=== PATIENT | female | born 1960 | race Caucasian/White ===

== ENCOUNTER 2023-10-22 05:53 | Emergency (ER) | payer MEDICAID ==
[~2023-10-22] VITALS: Ht 149.9 cm; Wt 57.7 kg
[2023-10-22] MEDS ORDERED: FENO145T25 PO (06:56)
[2023-10-22] MEDS ORDERED: FOLI1TAB27 PO (06:56)
[2023-10-22] MEDS ORDERED: ACET-2778 PO (06:56)
[2023-10-22] MEDS ORDERED: LISI40TA13 PO (06:56)
[2023-10-22] MEDS ORDERED: SIMV-45 PO (06:56)
[2023-10-22] MEDS: triamcinolone acetonide 40mg/ml inj IM ONE (07:55)
[2023-10-22 08:12] LABS: BILIRUBIN,URINE NEGATIVE (Neg); CLARITY,URINE CLOUDY (Clear); COLOR,URINE STRAW (Yellow); GLUCOSE, URINE NEGATIVE (Neg); KETONES,URINE NEGATIVE (Neg); LEUKOCYTE ESTERASE ,URINE LARGE (Neg); NITRITES, URINE NEGATIVE (Neg); OCCULT BLOOD,URINE TRACE-INTACT (Neg); PH,URINE 6.5 (4.8-8.0); PROTEIN,URINE NEGATIVE (Neg); UROBILINOGEN,URINE 0.2 E.U/dL (0.2-1.0)
[2023-10-22 08:14] LABS: BASOPHILS % (AUTO) 1.1 % (0-1); EOSINOPHILS # (AUTO) 0.1 X10'3 (0-0.9); EOSINOPHILS % (AUTO) 2.2 % (0-6); HEMATOCRIT 37.5 % (35.0-45.0); HEMOGLOBIN 12.6 g/dl (12.0-16.0); LYMPHOCYTES # (AUTO) 0.8 X10'3 (1.1-4.8); LYMPHOCYTES % (AUTO) 25.6 % (21-51); MEAN CORPUSCULAR HEMOGLOBIN 34.1 PG (27.0-31.0); MEAN CORPUSCULAR HGB CONC 33.5 g/dL (33.0-36.5); MEAN CORPUSCULAR VOLUME 101.9 FL (78-98); MEAN PLATELET VOLUME 7.2 FL (7.4-10.4); MONOCYTES # (AUTO) 0.3 X10'3 (0-0.9); MONOCYTES % (AUTO) 10.5 % (2-12); NEUTROPHILS # (AUTO) 1.9 X10'3 (1.8-7.7); NEUTROPHILS % (AUTO) 60.6 % (42-75); PLATELET COUNT 119 X10'3 (140-440); RED BLOOD COUNT 3.68 X10'6 (4.20-5.60); RED CELL DISTRIBUTION WIDTH 13.8 % (11.5-14.5); WHITE BLOOD COUNT 3.1 X10'3 (4.5-11.0)
[2023-10-22 08:25] LABS: ALANINE AMINOTRANSFERASE 30 U/L (12-78); ALBUMIN 3.5 G/DL (3.4-5.0); ALBUMIN/GLOBULIN RATIO 0.7 (1.1-1.5); ALKALINE PHOSPHATASE 80 IU/L (46-116); ANION GAP 12 (8-16); ASPARTATE AMINO TRANSFERASE 85 U/L (10-37); BILIRUBIN,TOTAL 0.9 MG/DL (0.1-1.0); BLOOD UREA NITROGEN 4 MG/DL (7-18); BUN/CREATININE RATIO 4.8 (10.0-20.0); CHLORIDE 98 MMOL/L (99-107); CREATININE 0.83 MG/DL (0.40-0.90); POTASSIUM 3.7 MMOL/L (3.5-5.1); SODIUM 132 MMOL/L (135-145); TOTAL PROTEIN 8.3 G/DL (6.4-8.2); eCRCL 48 ML/MIN; eGFR 70 ML/MIN
[2023-10-22 08:26] LABS: GLUCOSE 103 MG/DL (70-104)
[2023-10-22 08:33] LABS: UA COLLECTION TYPE NON-SPECIFIED
[2023-10-22 08:34] LABS: BACTERIA,URINE 4+ /HPF (Neg); SQUAMOUS EPITHELIAL CELL,UR MANY /LPF (FEW); WBC,URINE TNTC /HPF (0-4)
[2023-10-22] MEDS ORDERED: PRED20TA PO (11:41)
[2023-10-22 11:45] VITALS: BP 124/70; PULSE 99; RESP 18; TEMP 98; O2SAT 95
== END 2023-10-22 11:33 | disposition home or self-care (01) ==
LOC: ER 05:54
DX: R21 Rash and other nonspecific skin eruption (principal); Z79.1 Long term (current) use of non-steroidal anti-inflammatories (NSAID); Z79.899 Other long term (current) drug therapy
CPT/HCPCS: 36415; 80053; 81001; 85025; 85651; 96372; 99284; J3301

== ENCOUNTER 2023-11-19 00:37 | Inpatient (IN) | payer MEDICAID ==
[2023-11-19] VITALS (15 sets, daily range): BP systolic 104–169; BP diastolic 55–79; PULSE 89–100; RESP 15–21; O2SAT 93–99
[~2023-11-19] VITALS: Ht 149.9 cm; Wt 57.4 kg
[~2023-11-19 00:37] MED LIST: ACET-2778 PO; FENO145T25 PO; FOLI1TAB27 PO; LISI40TA13 PO; PRED20TA PO; SIMV-45 PO
[2023-11-19 01:28] LABS: BASOPHILS % (AUTO) 0.4 % (0-1); EOSINOPHILS % (AUTO) 0 % (0-6); HEMATOCRIT 32.6 % (35.0-45.0); HEMOGLOBIN 11.5 g/dl (12.0-16.0); LYMPHOCYTES # (AUTO) 0.4 X10'3 (1.1-4.8); LYMPHOCYTES % (AUTO) 4.9 % (21-51); MEAN CORPUSCULAR HEMOGLOBIN 34.2 PG (27.0-31.0); MEAN CORPUSCULAR HGB CONC 35.4 g/dL (33.0-36.5); MEAN CORPUSCULAR VOLUME 96.7 FL (78-98); MEAN PLATELET VOLUME 7.5 FL (7.4-10.4); MONOCYTES # (AUTO) 0.9 X10'3 (0-0.9); MONOCYTES % (AUTO) 10.3 % (2-12); NEUTROPHILS # (AUTO) 7.3 X10'3 (1.8-7.7); NEUTROPHILS % (AUTO) 84.4 % (42-75); PLATELET COUNT 145 X10'3 (140-440); RED BLOOD COUNT 3.37 X10'6 (4.20-5.60); RED CELL DISTRIBUTION WIDTH 12.9 % (11.5-14.5); WHITE BLOOD COUNT 8.6 X10'3 (4.5-11.0)
[2023-11-19 01:37] LABS: ALBUMIN 3.5 G/DL (3.4-5.0); ANION GAP 12 (8-16); BLOOD UREA NITROGEN 11 MG/DL (7-18); BUN/CREATININE RATIO 9.6 (10.0-20.0); CALCIUM 8.9 MG/DL (8.5-10.1); CHLORIDE 71 MMOL/L (99-107); CREATININE 1.14 MG/DL (0.40-0.90); GLUCOSE 135 MG/DL (70-104); PRO BRAIN NATRIURETIC PEPTIDE 508 PG/ML (0-125); TOTAL CARBON DIOXIDE 26.3 MMOL/L (24-32); eCRCL 35 ML/MIN; eGFR 48 ML/MIN
[2023-11-19 01:42] LABS: SODIUM 109 MMOL/L (135-145)
[2023-11-19 01:45] LABS: ETHANOL 39 MG/DL (<10)
[2023-11-19] MEDS: potassium Cl 20 mEq SR tablet PO ONE (02:40)
[2023-11-19] MEDS: thiamine 100mg tablet PO ONE (02:40)
[2023-11-19] MEDS: folic acid 1mg tablet PO ONE (02:40)
[2023-11-19] MEDS: magnesium sulf-water 2g/50mL 50 ML IV ONE ×2 (02:41→07:48)
[2023-11-19] MEDS: LORazepam 2 mg/ml vial IV ONE (03:53)
[2023-11-19] MEDS: ondansetron/PF 4mg/2ml inj IV ONE (04:21)
[2023-11-19] MEDS: sodium chloride 1gm tablet PO SCH (07:49)
[2023-11-19] MEDS: Potassium Cl inj 40 MEQ in normal saline 250ml IV soln 250 ML IV ONE (08:08)
[2023-11-19] MEDS: Potassium Cl 40 MEQ in sodium chloride 0.45% 500 ML IV ONE (08:26)
[2023-11-19] MEDS ORDERED: potassium Cl 20 mEq SR tablet PO PRN ×2 (10:40)
[2023-11-19] MEDS ORDERED: magnesium sulf-water 4G/100mL 100 ML IV PRN (10:40)
[2023-11-19] MEDS ORDERED: magnesium sulf-water 2g/50mL 50 ML IV PRN (10:40)
[2023-11-19] MEDS ORDERED: potassium Cl 40MEQ/1/2NS 520ml 520 ML IV PRN (10:40)
[2023-11-19] MEDS ORDERED: LORazepam 2 mg/ml vial IV PRN (10:45)
[2023-11-19 10:50] LABS: LIPASE 76 U/L (16-77); THYROID STIMULATING HORMONE 0.73 ulU/ml (0.34-4.50)
[2023-11-19 10:56] LABS: INR 1.2 INR; PROTHROMBIN TIME 12.6 SECONDS (9.0-12.0)
[2023-11-19 11:28] LABS: OSMOLALITY 232 MOSM/K (280-300)
[2023-11-19 11:29] LABS: ALANINE AMINOTRANSFERASE 64 U/L (12-78); ALBUMIN 3.3 G/DL (3.4-5.0); ALBUMIN/GLOBULIN RATIO 0.8 (1.1-1.5); ALKALINE PHOSPHATASE 60 IU/L (46-116); ANION GAP 11 (8-16); ASPARTATE AMINO TRANSFERASE 134 U/L (10-37); BILIRUBIN,TOTAL 2.7 MG/DL (0.1-1.0); BLOOD UREA NITROGEN 10 MG/DL (7-18); BUN/CREATININE RATIO 9.2 (10.0-20.0); CALCIUM 8.8 MG/DL (8.5-10.1); CHLORIDE 71 MMOL/L (99-107); CREATININE 1.09 MG/DL (0.40-0.90); GLUCOSE 132 MG/DL (70-104); MAGNESIUM 2.2 MG/DL (1.5-2.4); TOTAL CARBON DIOXIDE 24.6 MMOL/L (24-32); TOTAL PROTEIN 7.2 G/DL (6.4-8.2); eCRCL 36 ML/MIN; eGFR 51 ML/MIN
[2023-11-19 11:31] LABS: SODIUM 107 MMOL/L (135-145)
[2023-11-19] MEDS: pneumococcal 23-VAL P-sac vacc 25 mcg/0.5ml vial IMVAC ONE (12:23)
[2023-11-19 12:27] LABS: OSMOLALITY UA 343 MOSM/K (50-1400)
[2023-11-19 12:28] LABS: APTT 33 SECONDS (22-32)
[2023-11-19 12:33] LABS: ALANINE AMINOTRANSFERASE 64 U/L (12-78); ALBUMIN 3.1 G/DL (3.4-5.0); ALBUMIN/GLOBULIN RATIO 0.8 (1.1-1.5); ALKALINE PHOSPHATASE 66 IU/L (46-116); ANION GAP 6 (8-16); ASPARTATE AMINO TRANSFERASE 147 U/L (10-37); BILIRUBIN,TOTAL 2.9 MG/DL (0.1-1.0); BLOOD UREA NITROGEN 9 MG/DL (7-18); BUN/CREATININE RATIO 8.7 (10.0-20.0); CALCIUM 8.7 MG/DL (8.5-10.1); CHLORIDE 76 MMOL/L (99-107); CREATININE 1.03 MG/DL (0.40-0.90); GLUCOSE 111 MG/DL (70-104); POTASSIUM 3.9 MMOL/L (3.5-5.1); TOTAL CARBON DIOXIDE 27.3 MMOL/L (24-32); TOTAL PROTEIN 6.9 G/DL (6.4-8.2); eCRCL 39 ML/MIN; eGFR 54 ML/MIN
[2023-11-19 12:35] LABS: SODIUM 109 MMOL/L (135-145)
[2023-11-19] MEDS: morphine 2 MG/ML inj. syringe IV PRN (13:22)
[2023-11-19] MEDS: ondansetron/PF 4mg/2ml inj IV PRN (13:24)
[2023-11-19] MEDS: thiamine 100mg/ml 2ml inj. IV SCH (13:24)
[2023-11-19 13:34] LABS: SODIUM,URINE RANDOM < 15 MEQ/L
[2023-11-19] MEDS ORDERED: labetalol 20mg/4ml (5mg/ml) syringe IV PRN (16:05)
[2023-11-19 17:20] LABS: ALBUMIN 2.9 G/DL (3.4-5.0); ANION GAP 5 (8-16); BLOOD UREA NITROGEN 10 MG/DL (7-18); BUN/CREATININE RATIO 9.3 (10.0-20.0); CALCIUM 8.6 MG/DL (8.5-10.1); CHLORIDE 80 MMOL/L (99-107); CREATININE 1.08 MG/DL (0.40-0.90); GLUCOSE 114 MG/DL (70-104); POTASSIUM 3.8 MMOL/L (3.5-5.1); TOTAL CARBON DIOXIDE 26.8 MMOL/L (24-32); eCRCL 37 ML/MIN; eGFR 51 ML/MIN
[2023-11-19 17:31] LABS: SODIUM 112 MMOL/L (135-145)
[2023-11-19] MEDS: chlordiazePOXIDE 5mg capsule PO PRN (20:09)
[2023-11-19] MEDS: famotidine/PF 10 mg/ml inj IV SCH (20:09)
[2023-11-20] VITALS (16 sets, daily range): BP systolic 105–149; BP diastolic 52–87; PULSE 88–101; RESP 16–26; TEMP 97.4–98.4; O2SAT 91–100
[2023-11-20 00:49] LABS: BASOPHILS % (AUTO) 0.3 % (0-1); EOSINOPHILS % (AUTO) 0.6 % (0-6); HEMATOCRIT 30.1 % (35.0-45.0); HEMOGLOBIN 10.2 g/dl (12.0-16.0); LYMPHOCYTES # (AUTO) 0.7 X10'3 (1.1-4.8); LYMPHOCYTES % (AUTO) 17.5 % (21-51); MEAN CORPUSCULAR HEMOGLOBIN 33.9 PG (27.0-31.0); MEAN CORPUSCULAR VOLUME 99.6 FL (78-98); MEAN PLATELET VOLUME 7.5 FL (7.4-10.4); MONOCYTES # (AUTO) 0.4 X10'3 (0-0.9); MONOCYTES % (AUTO) 10.7 % (2-12); NEUTROPHILS # (AUTO) 2.8 X10'3 (1.8-7.7); NEUTROPHILS % (AUTO) 70.9 % (42-75); PLATELET COUNT 107 X10'3 (140-440); RED BLOOD COUNT 3.02 X10'6 (4.20-5.60); RED CELL DISTRIBUTION WIDTH 12.8 % (11.5-14.5)
[2023-11-20 00:55] LABS: APTT 31 SECONDS (22-32)
[2023-11-20 01:10] LABS: ALANINE AMINOTRANSFERASE 65 U/L (12-78); ALBUMIN 2.8 G/DL (3.4-5.0); ALBUMIN/GLOBULIN RATIO 0.8 (1.1-1.5); ALKALINE PHOSPHATASE 63 IU/L (46-116); ANION GAP 9 (8-16); ASPARTATE AMINO TRANSFERASE 139 U/L (10-37); BILIRUBIN,TOTAL 2.3 MG/DL (0.1-1.0); BLOOD UREA NITROGEN 10 MG/DL (7-18); BUN/CREATININE RATIO 10.2 (10.0-20.0); CALCIUM 8.5 MG/DL (8.5-10.1); CHLORIDE 84 MMOL/L (99-107); CREATININE 0.98 MG/DL (0.40-0.90); GLUCOSE 91 MG/DL (70-104); MAGNESIUM 2.2 MG/DL (1.5-2.4); PHOSPHORUS 1.6 MG/DL (2.3-4.5); POTASSIUM 3.6 MMOL/L (3.5-5.1); TOTAL CARBON DIOXIDE 23.1 MMOL/L (24-32); TOTAL PROTEIN 6.4 G/DL (6.4-8.2); eCRCL 41 ML/MIN; eGFR 58 ML/MIN
[2023-11-20 01:16] LABS: SODIUM 116 MMOL/L (135-145)
[2023-11-20] MEDS: K and/or MAG REPLACEMENT MC SCH (08:00)
[2023-11-20] MEDS: potassium phosphate inj 30 MMOL in normal saline 250ml IV soln 250 ML IV ONE (08:57)
[2023-11-20] MEDS: famotidine 20mg tablet PO SCH (08:57)
[2023-11-20] MEDS: multivitamins, therapeutics tablet PO SCH (08:57)
[2023-11-20] MEDS: lisinopril 20mg tablet PO SCH (08:58)
[2023-11-20] MEDS: chlordiazePOXIDE 5mg capsule PO PRN (08:58)
[2023-11-20] MEDS: folic acid 1mg/0.2ml inj IV SCH (08:58)
[2023-11-20] MEDS: pneumococcal 23-VAL P-sac vacc 25 mcg/0.5ml vial IMVAC ONE (11:26)
[2023-11-20 11:46] LABS: ALBUMIN 3.2 G/DL (3.4-5.0); ANION GAP 7 (8-16); BLOOD UREA NITROGEN 11 MG/DL (7-18); BUN/CREATININE RATIO 9.7 (10.0-20.0); CALCIUM 8.8 MG/DL (8.5-10.1); CHLORIDE 86 MMOL/L (99-107); CREATININE 1.13 MG/DL (0.40-0.90); GLUCOSE 97 MG/DL (70-104); POTASSIUM 3.7 MMOL/L (3.5-5.1); eCRCL 35 ML/MIN; eGFR 49 ML/MIN
[2023-11-20 12:02] LABS: SODIUM 120 MMOL/L (135-145)
[2023-11-20] MEDS: sodium chloride 1gm tablet PO SCH (17:12)
[2023-11-20 21:27] LABS: ALBUMIN 2.9 G/DL (3.4-5.0); ANION GAP 5 (8-16); BLOOD UREA NITROGEN 10 MG/DL (7-18); BUN/CREATININE RATIO 10.5 (10.0-20.0); CALCIUM 8.6 MG/DL (8.5-10.1); CHLORIDE 90 MMOL/L (99-107); CREATININE 0.95 MG/DL (0.40-0.90); GLUCOSE 92 MG/DL (70-104); POTASSIUM 3.7 MMOL/L (3.5-5.1); eCRCL 42 ML/MIN; eGFR 60 ML/MIN
[2023-11-20 21:37] LABS: SODIUM 120 MMOL/L (135-145)
[2023-11-21 02:00] VITALS: BP 148/77; PULSE 98; RESP 16; TEMP 98; O2SAT 99
[2023-11-21 06:18] VITALS: BP 125/75; PULSE 85; RESP 20; TEMP 97; O2SAT 99
[2023-11-21 07:23] LABS: BASOPHILS % (AUTO) 0.6 % (0-1); EOSINOPHILS % (AUTO) 1.5 % (0-6); HEMATOCRIT 30.7 % (35.0-45.0); HEMOGLOBIN 10.3 g/dl (12.0-16.0); LYMPHOCYTES # (AUTO) 0.8 X10'3 (1.1-4.8); LYMPHOCYTES % (AUTO) 26.4 % (21-51); MEAN CORPUSCULAR HEMOGLOBIN 33.7 PG (27.0-31.0); MEAN CORPUSCULAR HGB CONC 33.7 g/dL (33.0-36.5); MEAN PLATELET VOLUME 7.2 FL (7.4-10.4); MONOCYTES # (AUTO) 0.4 X10'3 (0-0.9); MONOCYTES % (AUTO) 12.7 % (2-12); NEUTROPHILS # (AUTO) 1.9 X10'3 (1.8-7.7); NEUTROPHILS % (AUTO) 58.8 % (42-75); PLATELET COUNT 132 X10'3 (140-440); RED BLOOD COUNT 3.07 X10'6 (4.20-5.60); RED CELL DISTRIBUTION WIDTH 13.3 % (11.5-14.5); WHITE BLOOD COUNT 3.1 X10'3 (4.5-11.0)
[2023-11-21 07:33] VITALS: BP_SYST 125; PULSE 85
[2023-11-21] MEDS: lisinopril 20mg tablet PO SCH (07:33)
[2023-11-21 07:34] LABS: APTT 28 SECONDS (22-32)
[2023-11-21 07:53] LABS: ALANINE AMINOTRANSFERASE 62 U/L (12-78); ALBUMIN 2.9 G/DL (3.4-5.0); ALBUMIN/GLOBULIN RATIO 0.8 (1.1-1.5); ALKALINE PHOSPHATASE 74 IU/L (46-116); ANION GAP 8 (8-16); ASPARTATE AMINO TRANSFERASE 104 U/L (10-37); BILIRUBIN,TOTAL 1.9 MG/DL (0.1-1.0); BLOOD UREA NITROGEN 8 MG/DL (7-18); CALCIUM 9.1 MG/DL (8.5-10.1); CHLORIDE 92 MMOL/L (99-107); CREATININE 0.89 MG/DL (0.40-0.90); GLUCOSE 96 MG/DL (70-104); MAGNESIUM 1.7 MG/DL (1.5-2.4); PHOSPHORUS 2.5 MG/DL (2.3-4.5); POTASSIUM 3.7 MMOL/L (3.5-5.1); SODIUM 124 MMOL/L (135-145); TOTAL CARBON DIOXIDE 24.3 MMOL/L (24-32); TOTAL PROTEIN 6.5 G/DL (6.4-8.2); eCRCL 45 ML/MIN; eGFR 64 ML/MIN
[2023-11-21 08:00] VITALS: RESP 20; O2SAT 99
[2023-11-21] MEDS ORDERED: lactulose 20gm/30ml cup PO PRN (10:05)
[2023-11-22] MEDS ORDERED: famotidine 20mg tablet PO SCH (08:00)
[2023-11-23] MEDS ORDERED: thiamine 100mg tablet PO SCH (08:00)
[2023-11-24] MEDS ORDERED: folic acid 1mg tablet PO SCH (08:00)
== END 2023-11-21 08:59 | disposition left against medical advice (07) | DRG 426 ==
LOC: ER 00:37 → ED HOLD 10:12 → CICU 2S 10:53 → PCU 3S 11-20 12:16
PROVIDERS: ADMIT Internal Medicine Critical Care Medicine; ATTEND Internal Medicine Critical Care Medicine
DX: E87.1 Hypo-osmolality and hyponatremia (principal); K70.10 Alcoholic hepatitis without ascites; K74.60 Unspecified cirrhosis of liver; D64.9 Anemia, unspecified; E87.6 Hypokalemia; E78.1 Pure hyperglyceridemia; Z53.21 Procedure and treatment not carried out due to patient leaving prior to being seen by health care provider; E83.42 Hypomagnesemia; I10 Essential (primary) hypertension; Z87.891 Personal history of nicotine dependence
CPT/HCPCS: 36415; 70450; 71045; 80048; 80053; 80320; 82948; 83690; 83735; 83880; 83930; 83935; 84100; 84300; 84443; 84484; 85025; 85610; 85730; 87081; 90732; 93005; 97110; 97161; 97530; 99291; A6213; G0378; J2060; J2270; J2405; J3411; J3480; J3490; J7050